=== PATIENT | female | born 1980 | race Caucasian/White ===

== ENCOUNTER 2023-12-15 21:02 | Emergency (ER) | payer OTHER ==
--- NOTE | 2023-12-15 21:15 | ED ---
Psych HPI - General Chief Complaint: Psychiatric Symptoms Stated Complaint: psych symptoms Time Seen by Provider: 12/15/23 21:14 Source: patient, RN notes reviewed, old records reviewed Mode of arrival: ambulatory Limitations: altered mental status - History of Present Illness Initial Comments: This is a 43-year-old female presented to the ER today for evaluation of acute psychosis patient is currently an unreliable historian MD Complaint: altered mental status -: days(s) Associated Psychiatric Symptoms: racing thoughts, auditory hallucinations, visual hallucinations, delusions History of same: No Quality: intermittent Improves With: none Worsens With: none Associated Symptoms: denies other symptoms Treatments Prior to Arrival: placed on mental health hold - Related Data Allergies Allergy/AdvReac Type Severity Reaction Status Date / Time No Known Allergies Allergy Verified 12/15/23 21:09 Review of Systems ROS Statement: Those systems with pertinent positive or pertinent negative responses have been documented in the HPI. ROS Other: All systems not noted in ROS Statement are negative. Past Medical History Past Medical History: Unable to Obtain Past Surgical History: Unable to Obtain Smoking Status: Current every day smoker Past Alcohol Use History: None Reported Past Drug Use History: Marijuana General Exam Limitations: altered mental status General appearance: alert, in no apparent distress Head exam: Present: atraumatic, normocephalic, normal inspection Eye exam: Present: normal appearance, PERRL, EOMI. Absent: scleral icterus, co njunctival injection, periorbital swelling ENT exam: Present: normal exam, mucous membranes moist Neck exam: Present: normal inspection. Absent: tenderness, meningismus, lymphadenopathy Respiratory exam: Present: normal lung sounds bilaterally. Absent: respiratory distress, wheezes, rales, rhonchi, stridor Cardiovascular Exam: Present: regular rate, normal rhythm, normal heart sounds. Absent: systolic murmur, diastolic murmur, rubs, gallop, clicks GI/Abdominal exam: Present: soft, normal bowel sounds. Absent: distended, tenderness, guarding, rebound, rigid Extremities exam: Present: normal inspection, full ROM, normal capillary refill. Absent: tenderness, pedal edema, joint swelling, calf tenderness Back exam: Present: normal inspection Neurological exam: Present: alert, oriented X3, CN II-XII intact Psychiatric exam: Present: normal affect, normal mood Skin exam: Present: warm, dry, intact, normal color. Absent: rash Course Vital Signs 12/15/23 21:04 Temperature 98.0 F Pulse Rate 109 H Respiratory 20 Rate Blood Pressure 104/54 O2 Sat by Pulse 99 Oximetry - Reevaluation(s) Reevaluation #1: 12/15/23 22:32 Medical records reviewed Reevaluation #2: 12/15/23 22:32 Medically clear for psychiatry Disposition Clinical Impression: Acute psychosis Disposition: HOME SELF-CARE Condition: Fair Instructions (If sedation given, give patient instructions): Brief Psychotic Disorder (ED) Is patient prescribed a controlled substance at d/c from ED?: No Referrals: None,Stated [Primary Care Provider] - 1-2 days Time of Disposition: 22:45
[2023-12-15 23:19] VITALS: BP 110/58; PULSE 115; RESP 26; TEMP 98.9
== END 2023-12-15 23:00 | disposition home or self-care (01) ==
LOC: EC 21:02
DX: F23 Brief psychotic disorder (principal); F17.200 Nicotine dependence, unspecified, uncomplicated
CPT/HCPCS: 82075; 99285